=== PATIENT | female | born 1975 | race Caucasian/White ===

== ENCOUNTER 2020-10-04 22:37 | Emergency (ER) | payer OTHER ==
[~2020-10-04] VITALS: Ht 152.4 cm; Wt 66.2 kg
[2020-10-04 22:43] VITALS: BP 166/98
--- NOTE | 2020-10-04 22:46 | NUR ---
TO LOBBY A/W BED AMBULATORY
[2020-10-05 00:26] VITALS: BP 166/98
--- NOTE | 2020-10-05 00:26 | NUR ---
Ana María crook in ED - 10/05/20 at 0643 by [id number] PATIENT ELOPED FROM FACILITY. DISCHARGE INSTRUCTIONS NOT GIVEN TO PATIENT. DR. TRINIDAD NOTIFIED.
--- NOTE | 2020-10-05 00:26 | NUR ---
PATIENT LEFT WITHOUT BEING SEEN BY DR. TRINIDAD. NO FURTHER CARE PROVIDED FOR PATIENT.
== END 2020-10-05 00:26 | disposition left against medical advice (07) ==
LOC: MED 22:37
DX: R20.0 Anesthesia of skin (principal); Z53.21 Procedure and treatment not carried out due to patient leaving prior to being seen by health care provider
CPT/HCPCS: 93005; 99281